=== PATIENT | male | born 1985 | race Caucasian/White ===

== ENCOUNTER 2022-08-23 19:38 | Inpatient (IN) | payer OTHER, BC ==
[~2022-08-23 19:38] MED LIST: Iopamidol-370 76% 500 ML 1 ML ONE
[2022-08-23] MEDS ORDERED: Boostrix 0.5 ML (Tdap) VIAL (>/=7 yrs of age) ONE (19:47)
[2022-08-23] MEDS ORDERED: CEFAZOLIN 1 GM VIAL ONE (19:47)
[2022-08-23] MEDS ORDERED: Propofol 1,000 MG/100 ML VIAL IV ONE (19:50)
[2022-08-23 19:59] LABS: #Basophils 0.1 thou/uL (0.0-0.2); #Eosinphils 0.2 thou/uL (0.0-0.7); #Lymphocytes 2.1 thou/uL (1.20-3.40); #Monocytes 0.4 thou/uL (0.11-0.59); #Neutrophils 5.3 thou/uL (1.40-6.50); %Basophils 0.9 % (0.0-1.0); %Eosinophils 2.6 % (0.0-10.0); %Lymphocytes 26.1 % (21.0-51.0); %Monocytes 5.4 % (0.0-10.0); %Neutrophils 64.9 % (42.0-75.0); Mean Corpuscular Hemoglobin 33.1 pg (27.0-31.0); Mean Platelet Volume 7.4 fL (7.4-10.4); Platelet Count 230 thou/uL (130-400); RBC Distribution Width 11.5 % (11.5-14.5); Red Blood Cell (RBC) Count 4.22 mill/uL (4.70-6.10); White Blood Cell (WBC) Count 8.1 thou/uL (4.8-10.8)
[2022-08-23] MEDS ORDERED: Fentanyl CADD 100 ML IV SCH ×2 (20:15→21:00)
[2022-08-23 20:16] LABS: ALT (SGPT) 18 U/L (8-55); AST (SGOT) 19 U/L (5-34); Albumin 4.1 g/dL (3.5-5.0); Alcohol Less than 10 mg/dL (Less than 10); Alkaline Phosphatase 70 U/L (40-110); Anion Gap 18 mmol/L (10-20); BUN (Urea Nitrogen) 13 mg/dL (8.9-20.6); Bilirubin, Total 0.5 mg/dL (0.2-1.2); Calc. Creatinine Clearance 0 mL/min (70-130); Calcium 8.9 mg/dL (7.8-10.44); Carbon Dioxide 20 mmol/L (22-29); Chloride 107 mmol/L (98-107); Estimated GFR 115; Globulin 2.4 g/dL (2.4-3.5); Glucose 105 mg/dL (70-105); Potassium 3.8 mmol/L (3.5-5.1); Protein, Total 6.5 g/dL (6.0-8.3); Sodium 141 mmol/L (136-145)
[2022-08-23] MEDS ORDERED: Dextrose 50% Abboject 50 ML SYRINGE SLOW IVP PRN (20:20)
[2022-08-23] MEDS ORDERED: hydrALAZINE 20 MG/ML VIAL SLOW IVP PRN (20:20)
[2022-08-23] MEDS ORDERED: TETANUS, DIPHTHERIA TOX,ADULT (TDVAX) 0.5 ML VIAL IM ONE (20:20)
[2022-08-23] MEDS ORDERED: Insulin Regular 300 UNITS/3 ML VIAL SC PRN (20:20)
[2022-08-23] MEDS ORDERED: Ondansetron PF 4 MG/2 ML Vial IVP PRN (20:20)
[2022-08-23] MEDS ORDERED: Dextrose 5% in Water 1,000 ML IV PRN (20:20)
[2022-08-23 20:21] LABS: INR-International Normal Ratio 0.9; PTT 26.6 sec (22.9-36.1); Prothrombin Time 12.7 sec (12.0-14.7)
[2022-08-23 20:26] LABS: Actual Bicarbonate (HCO3a) 21.8 mEq/L (22-28); Analyzer IN Cardio ER; CO2 Tension 46.6 mmHg (35.0-45.0); Calcium, Ionized (arterial) 1.19 mmol/L (1.12-1.30); Carboxyhemoglobin (COHb) 2.2 gm% (0.0-3.0); Hemoglobin (Hb) 14.4 g/dL (14.0-18.0); O2 Tension (PaO2), arterial 314.3 mmHg (80.0-100.0); Potassium - ABG Lab 3.86 mmol/L (3.70-5.30); pH, Arterial 7.29 (7.35-7.45)
[2022-08-23 20:33] LABS: Bilirubin Negative (Negative); Blood, Urine Negative (Negative); Clarity Clear (Clear); Glucose, Urine (Dipstick) Normal (Negative); Ketone, Urine 10 mg/dL (Negative); Leukocyte Negative Leu/uL (Negative); Nitrite Negative (Negative); Protein, Urine (Dipstick) 20 mg/dL (Neg-Trace); Specific Gravity, Urine 1.038 (1.002-1.036); pH, Urine 5.5 (5.0-9.0)
[2022-08-23 20:38] LABS: Magnesium 1.9 mg/dL (1.6-2.6); Phosphorus 4.3 mg/dL (2.3-4.7)
[2022-08-23] MEDS ORDERED: Ventilator Sedation Protocol 1 EACH FS SCH (20:45)
[2022-08-23] MEDS ORDERED: Midazolam HCl 2 mg/2 ml Vial SLOW IVP PRN (20:48)
[2022-08-23] MEDS ORDERED: Propofol 1,000 MG/100 ML VIAL IV PRN (21:00)
[2022-08-23] MEDS ORDERED: Fentanyl BOLUS 250 ML IVPB PRN (21:00)
[2022-08-23] MEDS ORDERED: DISCONTINUE PREVIOUS NARCOTIC PAIN MEDICATIONS AND BENZODIAZEPINES FS SCH (21:00)
[2022-08-23] MEDS ORDERED: Propofol BOLUS 1,000 MG/100 ML VIAL IV PRN (21:00)
[2022-08-23] MEDS ORDERED: Morphine 4 MG/ML VIAL SLOW IVP PRN (21:00)
[2022-08-23 21:47] LABS: SARS-CoV-2 NAA Rapid Test Not Detected (NotDetected)
[2022-08-23 21:58] LABS: Amphetamine Not Detected (NotDetected); Barbiturates Screen Not Detected (NotDetected); Benzodiazepine Screen Detected (NotDetected); Cocaine Metabolite Screen Not Detected (NotDetected); Methadone Not Detected (NotDetected); Methamphetamine Detected (NotDetected); Opiate Screen Not Detected (NotDetected); Oxycodone Screen Not Detected (NotDetected); Phencyclidine (PCP) Not Detected (NotDetected); THC/Cannabinoid Screen Not Detected (NotDetected); Tricyclic Screen Not Detected (NotDetected)
[2022-08-23] MEDS: Sodium Chloride 0.9% 1,000 ML IV SCH (22:46)
[2022-08-23] MEDS: Famotidine/PF 20 mg/2ml Vial SLOW IVP SCH (22:46)
[2022-08-23 22:54] VITALS: BMI 21.9
[2022-08-23 23:15] LABS: Puncture Site RRA
[2022-08-24 03:36] LABS: #Eosinphils 0.1 thou/uL (0.0-0.7); #Lymphocytes 1.5 thou/uL (1.20-3.40); #Monocytes 0.5 thou/uL (0.11-0.59); #Neutrophils 9.7 thou/uL (1.40-6.50); %Basophils 0.2 % (0.0-1.0); %Eosinophils 0.7 % (0.0-10.0); %Lymphocytes 12.6 % (21.0-51.0); %Monocytes 4.5 % (0.0-10.0); Hemoglobin 13.2 g/dL (14.0-18.0); Mean Corpuscular HGB CONC 33.3 g/dL (32.0-36.0); Mean Corpuscular Hemoglobin 32.9 pg (27.0-31.0); Mean Corpuscular Volume 98.6 fl (78.0-98.0); Mean Platelet Volume 7.5 fL (7.4-10.4); Platelet Count 224 thou/uL (130-400); RBC Distribution Width 11.6 % (11.5-14.5); Red Blood Cell (RBC) Count 4.02 mill/uL (4.70-6.10); White Blood Cell (WBC) Count 11.8 thou/uL (4.8-10.8)
[2022-08-24 03:50] LABS: Anion Gap 12 mmol/L (10-20); BUN (Urea Nitrogen) 10 mg/dL (8.9-20.6); Calc. Creatinine Clearance 140 mL/min (70-130); Calcium 8.8 mg/dL (7.8-10.44); Carbon Dioxide 24 mmol/L (22-29); Chloride 111 mmol/L (98-107); Estimated GFR 119; Glucose 114 mg/dL (70-105); Magnesium 1.8 mg/dL (1.6-2.6); Phosphorus 3.5 mg/dL (2.3-4.7); Sodium 143 mmol/L (136-145)
[2022-08-24] MEDS: Sodium Chloride 0.9% 1,000 ML IV SCH (07:13)
[2022-08-24] MEDS ORDERED: traMADol HCl 50 MG TAB PO PRN (09:14)
[2022-08-24] MEDS ORDERED: Ibuprofen 200 MG TAB PO SCH (10:00)
[2022-08-24] MEDS: Famotidine/PF 20 mg/2ml Vial SLOW IVP SCH (10:10)
[2022-08-24] MEDS: Acetaminophen 500 MG TAB PO SCH ×2 (10:10→15:21)
[2022-08-24] MEDS ORDERED: ALPRAZolam 1 MG TAB PO SCH (15:00)
[2022-08-24 18:04] VITALS: BP 121/70; TEMP 98.2
== END 2022-08-24 17:25 | disposition home or self-care (01) | DRG 154 ==
LOC: ERS 19:38 → CCU 20:34 → SJJU 08-24 14:42
PROVIDERS: ADMIT Surgery; ATTEND Surgery
PROC: 5A1935Z Respiratory Ventilation, Less than 24 Consecutive Hours (ICD-10-PCS; principal; 2022-08-23)
PROC: 0BH17EZ Insertion of Endotracheal Airway into Trachea, Via Natural or Artificial Opening (ICD-10-PCS; 2022-08-23)
PROC: 0D9670Z Drainage of Stomach with Drainage Device, Via Natural or Artificial Opening (ICD-10-PCS; 2022-08-23)
DX: S02.2XXA Fracture of nasal bones, initial encounter for closed fracture (principal); J96.00 Acute respiratory failure, unspecified whether with hypoxia or hypercapnia; R40.2312 Coma scale, best motor response, none, at arrival to emergency department; R40.2112 Coma scale, eyes open, never, at arrival to emergency department; R40.2212 Coma scale, best verbal response, none, at arrival to emergency department; E87.20 Acidosis, unspecified; Z78.1 Physical restraint status; V43.52XA Car driver injured in collision with other type car in traffic accident, initial encounter; F19.10 Other psychoactive substance abuse, uncomplicated; F17.210 Nicotine dependence, cigarettes, uncomplicated
CPT/HCPCS: 36415; 36600; 70450; 70486; 70498; 71045; 71260; 72125; 74177; 80048; 80053; 80306; 80307; 81003; 82805; 83605; 83735; 84100; 85025; 85610; 85730; 86850; 86900; 86901; 90715; 93005; 94002; 94003; 94640; G0390; J0690; J2250; J2704; J3010; J7050; J7620; S0028; U0002